=== PATIENT | male | born 1955 | race Caucasian/White ===

== ENCOUNTER 2017-08-19 14:34 | Emergency (ER) | payer OTHER ==
[2017-08-19 14:50] VITALS: BP 143/85; PULSE 79; TEMP 98.2; O2SAT 98
--- NOTE | 2017-08-19 15:07 | C.PDOC ---
History Of Present Illness 62 y/o male presents to the ER complaining of elevated blood pressure. Patient states that he is not taking BP medications and he is requesting medications for high blood pressure. Patient states that Dr. Shultz is his PMD for the past 15 years. 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 Time Seen by Provider: 08/19/17 15:00 Chief Complaint (Nursing): High Blood Pressure History Per: Patient History/Exam Limitations: no limitations Onset/Duration Of Symptoms: Days Current Symptoms Are (Timing): Still Present Severity: Moderate Past Medical History Reviewed: Historical Data, Nursing Documentation, Vital Signs Vital Signs: Last Vital Signs Temp 98.2 F 08/19/17 14:49 Pulse 79 08/19/17 14:49 Resp 18 08/19/17 15:30 BP 143/85 08/19/17 14:49 Pulse Ox 98 08/19/17 15:41 - Medical History PMH: Pneumonia Surgical History: No Surg Hx Family History: States: No Known Family Hx - Social History Hx Tobacco Use: No Hx Alcohol Use: Yes Hx Substance Use: No - Immunization History Hx Tetanus Toxoid Vaccination: Yes Hx Influenza Vaccination: Yes Hx Pneumococcal Vaccination: Yes Review Of Systems Except As Marked, All Systems Reviewed And Found Negative. Constitutional: Positive for: Other (elevated blood pressure). Negative for: Fever, Chills Physical Exam - Physical Exam Appears: Non-toxic, No Acute Distress Skin: Normal Color, Warm, Dry Head: Atraumatic, Normacephalic Eye(s): bilateral: Normal Inspection Nose: Normal Oral Mucosa: Moist Neck: Supple Chest: Symmetrical Cardiovascular: Rhythm Regular Respiratory: Normal Breath Sounds, No Rales, No Rhonchi, No Wheezing Neurological/Psych: Oriented x3, Normal Speech ED Course And Treatment O2 Sat by Pulse Oximetry: 98 (RA) Pulse Ox Interpretation: Normal Medical Decision Making Medical Decision Making: followed by Dr. Shultz PMD x 15 yrs, last seen 1 month ago no acute issues asking for BP meds for normal BP Educated and pt defers w/u w informed consent to f/u with PMD Disposition Doctor Will See Patient In The: Office Counseled Patient/Family Regarding: Studies Performed, Diagnosis - Disposition Referrals: Geronimo Shultz MD [Staff Provider] - Disposition: HOME/ ROUTINE Disposition Time: 15:06 Condition: GOOD Additional Instructions: luque pression esta muy kayla hoy NO requiere medicamentos para la pression su. Sigue con Dr. Shultz Instructions: High Blood Pressure in Adults Forms: [facility] (Chinese) Print Language: AZERI - Clinical Impression Clinical Impression: Hypertension - Scribe Statement The provider has reviewed the documentation as recorded by the Vargas Russell Provider Attestation: All medical record entries made by the Radhamesibroseann were at my direction and personally dictated by me. I have reviewed the chart and agree that the record accurately reflects my personal performance of the history, physical exam, medical decision making, and the department course for this patient. I have also personally directed, reviewed, and agree with the discharge instructions and disposition.
[2017-08-19 15:31] VITALS: RESP 18
== END 2017-08-19 15:53 | disposition home or self-care (01) ==
LOC: C.ER 14:34
DX: I10 Essential (primary) hypertension (principal)

== ENCOUNTER 2017-08-28 10:14 | Emergency (ER) | payer OTHER ==
[2017-08-28 10:20] VITALS: TEMP 98.3
--- NOTE | 2017-08-28 10:40 | C.PDOC ---
History Of Present Illness VIA TRANS CO RECUR R SIDED FACIAL CASPER SINCE THIS MORNING. SEEN 08/19 FOR HTN, STATES HAD SIM CASPER AT THAT TIME BUT RESOLVED. CURRENT CASPER MORE INTENSE COMPARED TO INITIAL. DENIES PRIOR ASSOC CASPER. NO VISION CHANGE, NV, RASH. DENIES HO FREQ CASPER EXAM NAD NONTOXIC HEENT EYES CLEAR; NO CONJ INJECTION, DC; R TM CLEAR; NO FACIAL SWELL, TEND NECK SUPPLE NEURO NO FOCAL DEF NEG Time Seen by Provider: 08/28/17 10:32 Chief Complaint (Nursing): Headache History Per: Patient History/Exam Limitations: no limitations Onset/Duration Of Symptoms: Hrs Current Symptoms Are (Timing): Still Present Past Medical History Reviewed: Historical Data, Nursing Documentation, Vital Signs Vital Signs: Last Vital Signs Temp 98.3 F 08/28/17 10:18 Pulse 72 08/28/17 10:18 Resp 18 08/28/17 10:18 BP 162/88 H 08/28/17 10:18 Pulse Ox 98 08/28/17 11:08 - Medical History PMH: Pneumonia Surgical History: No Surg Hx Family History: States: No Known Family Hx - Social History Hx Tobacco Use: No Hx Alcohol Use: Yes Hx Substance Use: No - Immunization History Hx Tetanus Toxoid Vaccination: Yes Hx Influenza Vaccination: Yes Hx Pneumococcal Vaccination: Yes Review Of Systems Except As Marked, All Systems Reviewed And Found Negative. Eyes: Negative for: Vision Change Gastrointestinal: Negative for: Nausea, Vomiting Neurological: Positive for: Headache Physical Exam - Physical Exam Appears: Non-toxic, No Acute Distress Skin: Normal Color, Warm, Dry Head: Atraumatic Eye(s): bilateral: Normal Inspection Ear(s): Bilateral: Normal Respiratory: Other (NARD) Neurological/Psych: Oriented x3, Normal Speech ED Course And Treatment O2 Sat by Pulse Oximetry: 98 (RA) Pulse Ox Interpretation: Normal Progress - Re-Evaluation Re-evaluation Note: 08/28/17 12:13 NEURO INTACT [facility] PRIOR APPEARS COMFORTABLE. OTC PAIN RX, FU PMD - Data Reviewed Data Reviewed: Diagnostic imaging, Old records Medical Decision Making Medical Decision Making: Plan: CT HEAD W/O Constrat Reglan 10mg PO Toradol 60mg IM Disposition Counseled Patient/Family Regarding: Studies Performed, Diagnosis, Need For Followup - Disposition Referrals: YOUR,PMD [Other] Disposition: HOME/ ROUTINE Disposition Time: 12:13 Condition: IMPROVED Instructions: Headache, Adult (DC) Forms: [facility] (Nepalese) Print Language: TURKISH - Clinical Impression Clinical Impression: Headache - Scribe Statement The provider has reviewed the documentation as recorded by the Scribe (Alee Mathew) Provider Attestation: All medical record entries made by the Scribe were at my direction and personally dictated by me. I have reviewed the chart and agree that the record accurately reflects my personal performance of the history, physical exam, medical decision making, and the department course for this patient. I have also personally directed, reviewed, and agree with the discharge instructions and disposition.
--- NOTE | 2017-08-28 12:10 | CT ---
PROCEDURE: CT HEAD WITHOUT CONTRAST. HISTORY: HEADACHE COMPARISON: None available. TECHNIQUE: Axial computed tomography images were obtained through the head/brain without intravenous contrast. Radiation dose: Total exam DLP = 876.10 mGy-cm. This CT exam was performed using one or more of the following dose reduction techniques: Automated exposure control, adjustment of the mA and/or kV according to patient size, and/or use of iterative reconstruction technique. FINDINGS: HEMORRHAGE: No intracranial hemorrhage. BRAIN: Normal forman-white matter differentiation and density are appreciated throughout the cerebrum and cerebellum with the brainstem appearing unremarkable as well. There is no mass effect. There is no suspicious extra-axial fluid collection and the midline brain anatomy appears diffusely unremarkable. No atrophy or chronic microvascular ischemic changes. VENTRICLES: Unremarkable. No hydrocephalus. CALVARIUM: Unremarkable. PARANASAL SINUSES: Unremarkable as visualized. No significant inflammatory changes. MASTOID AIR CELLS: Unremarkable as visualized. No inflammatory changes. OTHER FINDINGS: None. IMPRESSION: Unremarkable CT of the Head.
[2017-08-28 12:24] VITALS: BP 154/85; PULSE 82; RESP 16; O2SAT 100
== END 2017-08-28 12:23 | disposition home or self-care (01) ==
LOC: C.ER 10:14
DX: R51 Headache (principal)